=== PATIENT | female | born 1935 | race Caucasian/White ===

== ENCOUNTER 2023-01-23 16:03 | Emergency (ER) | payer MEDICARE ==
[~2023-01-23] VITALS: Ht 172.7 cm; Wt 81.8 kg
[~2023-01-23 16:03] MED LIST: DICY10CA88 PO; FAMO-128 PO; IBUP-24 PO; LISI40TA13 PO; LORA-512 PO; ONDA4TAB6 PO; PANT-47 PO
[2023-01-23 16:11] VITALS: BP 200/82
[2023-01-23 16:30] LABS: EOSINOPHILS # (AUTO) 0.1 X10'3 (0-0.9); EOSINOPHILS % (AUTO) 0.8 % (0-6); LYMPHOCYTES # (AUTO) 1.3 X10'3 (1.1-4.8); MEAN CORPUSCULAR VOLUME 84.7 FL (78-98); MEAN PLATELET VOLUME 6.7 FL (7.4-10.4); NEUTROPHILS # (AUTO) 5.7 X10'3 (1.8-7.7)
[2023-01-23 16:31] LABS: BASOPHILS % (AUTO) 0.3 % (0-1); HEMATOCRIT 43.9 % (35.0-45.0); HEMOGLOBIN 14.8 g/dl (12.0-16.0); LYMPHOCYTES % (AUTO) 16.2 % (21-51); MEAN CORPUSCULAR HEMOGLOBIN 28.5 PG (27.0-31.0); MEAN CORPUSCULAR HGB CONC 33.7 g/dL (33.0-36.5); MONOCYTES # (AUTO) 0.9 X10'3 (0-0.9); MONOCYTES % (AUTO) 10.8 % (2-12); NEUTROPHILS % (AUTO) 71.9 % (42-75); PLATELET COUNT 328 X10'3 (140-440); RED BLOOD COUNT 5.18 X10'6 (4.20-5.60); RED CELL DISTRIBUTION WIDTH 13.3 % (11.5-14.5); WHITE BLOOD COUNT 7.9 X10'3 (4.5-11.0)
[2023-01-23 16:55] LABS: ALANINE AMINOTRANSFERASE 31 U/L (12-78); ALBUMIN 4.2 G/DL (3.4-5.0); ALBUMIN/GLOBULIN RATIO 1.2 (1.1-1.5); ALKALINE PHOSPHATASE 107 IU/L (46-116); ANION GAP 8 (8-16); ASPARTATE AMINO TRANSFERASE 21 U/L (10-37); BLOOD UREA NITROGEN 11 MG/DL (7-18); BUN/CREATININE RATIO 13.1 (6.6-38.0); CALCIUM 9.4 MG/DL (8.5-10.1); CHLORIDE 101 MMOL/L (99-107); CREATININE 0.84 MG/DL (0.40-0.90); GLUCOSE 108 MG/DL (70-104); POTASSIUM 3.7 MMOL/L (3.5-5.1); SODIUM 137 MMOL/L (135-145); TOTAL CARBON DIOXIDE 27.6 MMOL/L (24-32); TOTAL PROTEIN 7.6 G/DL (6.4-8.2); eGFR 64 ML/MIN
[2023-01-23] MEDS ORDERED: METO-539 PO (18:53)
--- NOTE | 2023-01-23 19:10 | NUR ---
iv dc'd pt being discharged. dressing applied
== END 2023-01-23 19:14 | disposition home or self-care (01) ==
LOC: ER 16:04
DX: R42 Dizziness and giddiness (principal); R53.1 Weakness; R06.02 Shortness of breath; I49.9 Cardiac arrhythmia, unspecified; I10 Essential (primary) hypertension; K21.9 Gastro-esophageal reflux disease without esophagitis; Z98.890 Other specified postprocedural states; Z88.2 Allergy status to sulfonamides; Z88.8 Allergy status to other drugs, medicaments and biological substances
CPT/HCPCS: 36415; 71045; 80053; 83880; 84484; 85025; 93005; 99285; J7030